=== PATIENT | male | born 1965 | race African-American/Black ===

== ENCOUNTER 2019-08-22 22:49 | Emergency (ER) | payer OTHER ==
[~2019-08-22] VITALS: Ht 167.6 cm; Wt 95.3 kg
[2019-08-22] MEDS ORDERED: SINGULAIR 10 MG10 M1 PO (23:18)
[2019-08-23 00:20] LABS: ABSOLUTE NEUTROPHILS 1.8 thou/uL (1.4-8.2); BASOPHILS 1.2 % (0.0-2.0); EOSINOPHILS 3.4 % (0.0-3.0); HEMATOCRIT 40.1 % (42.0-52.0); HEMOGLOBIN 14.7 gm/dL (14.0-18.0); LYMPHOCYTES 56.4 % (24.0-44.0); MCH 34.5 pg (26.0-34.0); MCHC 36.6 g/dL (28.0-37.0); MCV 94.3 fL (80.0-100.0); PLATELET COUNT 337 thou/uL (150-400); RBC 4.25 mil/uL (4.50-6.00); WBC 5.6 thou/uL (4.0-11.0)
[2019-08-23 00:24] LABS: ANION GAP 11 mmol/L (7-16); BUN 14 mg/dL (7-18); CALCIUM 7.7 mg/dL (8.5-10.1); CHLORIDE 101 mmol/L (98-107); CO2 24 mmol/L (21-32); CREATININE 1.2 mg/dL (0.7-1.3); GLUCOSE 138 mg/dL (74-106); SODIUM 136 mmol/L (136-145)
[2019-08-23 00:32] LABS: TROPONIN-I <0.06 ng/mL (<0.06)
[2019-08-23 01:09] VITALS: BP 113/70
--- NOTE | 2019-08-23 09:11 | EKG ---
[facility] [place] [address] ELECTROCARDIOGRAM REPORT Name: IWONA KEARNS Room #: DEP [facility]#: [id number] Admission: 08/22/19 Attend Phys: Discharge: 08/23/19 Date of : 69 Report #: [id number] THIS REPORT FOR: cc: Lino Esquivel MD, Gary A. MD Lundgren,Nathan Rico MD [facility] ~ THIS REPORT FOR: //name// [facility] ED Test Date: 2019-08-22 Test Time: 23:01:55 Pat Name: IWONA KEARNS Department: Room: Gender: [employer]: [facility] : 1965 Requested By: Kyle Gandara Order Number: [id number] MD: Nathan Michel Measurements Intervals [place] Rate: 82 P: 65 TN: 151 QRS: 51 QRSD: 91 T: 44 QT: 361 QTc: 422 Interpretive Statements Sinus rhythm No significant abnormality No previous ECG available for comparison Electronically Signed On 08-23-2019 9:10:27 CDT by Nathan Michel [email or web address] <ELECTRONICALLY SIGNED> By: Nathan Michel MD, [facility] 08/23/19 0910 00 00 Nathan Michel MD, FACC /EPI
== END 2019-08-23 01:09 | disposition home or self-care (01) ==
LOC: ER 22:49
PROVIDERS: Emergency Medicine
DX: R06.00 Dyspnea, unspecified (principal); R00.2 Palpitations; R22.2 Localized swelling, mass and lump, trunk